=== PATIENT | female | born 1995 | race Caucasian/White ===

== ENCOUNTER → 2017-11-11 | Outpatient (CLI) | payer BC | LOC: LAB 09:38 | DX: J02.8 Acute pharyngitis due to other specified organisms (principal); J35.8 Other chronic diseases of tonsils and adenoids; R50.9 Fever, unspecified ==

== ENCOUNTER 2019-02-02 08:30 | Outpatient (RCR) | payer BC | END 2019-02-02 09:00 | LOC: PT 08:30 | DX: M25.675 Stiffness of left foot, not elsewhere classified (principal); Z98.890 Other specified postprocedural states ==